=== PATIENT | female | born 1945 | race Caucasian/White ===

== ENCOUNTER 2022-09-22 15:21 | Emergency (ER) | payer MEDICARE, SELFPAY ==
[2022-09-22 15:29] VITALS: BP 155/101; PULSE 87; RESP 16; TEMP 36.9; O2SAT 92
--- NOTE | 2022-09-22 15:52 | ECG_ITS ---
[facility] Test Date: 2022-09-22 Pat Name: Myrna Sanchez Department: Room: Gender: Female Radiology Rn: : 1945 Requested By: Noé Rodriguez Order Number: [id number] Estrella MD: Rayo Waldron M.D. Measurements Intervals [place] Rate: 87 P: 65 WA: 159 QRS: 12 QRSD: 74 T: 55 QT: 360 QTc: 434 Interpretive Statements SINUS RHYTHM POSSIBLE RIGHT VENTRICULAR CONDUCTION DELAY [RSR (QR) IN V1/V2] No previous ECG available for comparison Electronically Signed On 09-23-2022 10:28:33 CDT by Rayo Waldron M.D. [email or web address]
--- NOTE | 2022-09-22 15:52 | CTR_ITS ---
PROCEDURE INFORMATION: Exam: CT Head Without Contrast Exam date and time: 09/22/2022 4:04 PM Age: 77 years old Clinical indication: Dizziness TECHNIQUE: Imaging protocol: Computed tomography of the head without contrast. Radiation optimization: All CT scans at this facility use at least one of these dose optimization techniques: automated exposure control; mA and/or kV adjustment per patient size (includes targeted exams where dose is matched to clinical indication); or iterative reconstruction. REPORTING DATA: Count of CT and Cardiac NM exams in prior 12 months: This patient has received 0 known CTs and 0 known cardiac nuclear medicine studies in the 12 months prior to the current study. COMPARISON: No relevant prior studies available. RADIATION DOSE METRICS: Total DLP (mGy-cm): 1123.78 FINDINGS: Brain: No intracranial hemorrhage. No mass effect, edema or midline shift. Cortical sulci are unremarkable for age. There are vague areas of decreased attenuation within the periventricular white matter likely secondary to chronic microvascular changes. Cerebral ventricles: No ventriculomegaly. Paranasal sinuses: Minimal mucosal thickening left maxillary sinus otherwise paranasal sinuses are unremarkable. No fluid levels. Mastoid air cells: Visualized mastoid air cells are well aerated. Bones/joints: Unremarkable. No acute fracture. Soft tissues: Unremarkable. CT/CT head wo con* [id number] IMPRESSION: No acute intracranial abnormality.
--- NOTE | 2022-09-22 16:25 | XRR_ITS ---
PROCEDURE INFORMATION: Exam: XR Chest Exam date and time: 09/22/2022 4:28 PM Age: 77 years old Clinical indication: Dyspnea; Additional info: Lightheadedness/dizziness TECHNIQUE: Imaging protocol: Radiologic exam of the chest. Views: 1 view. COMPARISON: No relevant prior studies available. FINDINGS: Lungs: And lungs: Surgical clips present along the right lateral chest wall presumed secondary to prior mastectomy. 11 cm circumscribed low attenuating masslike density projecting over right lower hemithorax presumed represent thickened or partially calcified or thickened capsule of underlying breast implant. Lung ramos otherwise aerated and clear. Pleural spaces: Unremarkable. No pleural effusion. No pneumothorax. Heart/Mediastinum: Unremarkable. No cardiomegaly. Bones/joints: Unremarkable for age. XR/XR chest 1V portable [id number] IMPRESSION: Right mastectomy with overlying right breast implant otherwise negative chest.
--- NOTE | 2022-09-22 16:26 | W.ED.DIZZY ---
Documented by User: HOMA Sanchez 09/24/22 08:21 HPI - Dizziness General: Chief Complaint: Dizziness Stated Complaint: DIZZY; HTN Time Seen by Provider: 09/22/22 15:32 History of Present Illness: HPI Narrative: Patient is a 77-year-old female comes to the ED with dizziness/lightheadedness. Symptoms have been happening now for the past week. She states that she has episodes where she gets really dizzy/lightheaded and they can last anywhere from minutes to close to an hour. She describes the dizziness as feeling more off balance and denies any room spinning sensation. Her dizziness episodes occur when she is up and ambulating. She has never had these type of episodes before. Denies any chest pain, shortness of breath, diaphoresis, nausea or vomiting. Denies any vision changes, numbness tingling or weakness to 1 side of her body or face. Patient has a history of COPD but is not on any home oxygen. Associated symptoms: Denies chest pain, chills, headache(s), nausea, nasal congestion, palpitations or vomiting Associated neuro symptoms: Deny numbness in extremities Review of Systems Const: Denies: fever(s), chills or fatigue Eyes: Denies: change in vision or eye discomfort ENMT: Denies: throat pain, odynophagia, nasal discharge or nasal congestion Card: Reports: lightheadedness; Denies: chest pain, palpitations, edema, swelling of feet/ankles, dyspnea on exertion or orthopnea Resp: Denies: dyspnea, productive cough or non-productive cough GI: Denies: abdominal pain, nausea, vomiting, diarrhea, constipation or hematochezia : Denies: flank pain, dysuria or hematuria Musc: Denies: neck pain, back pain or extremity swelling Skin/Breast: Denies: rash or new lesions Neuro: Reports: dizziness; Denies: headache(s), numbness in extremities or weakness in extremities PFSH ED PFSH: Medical History COPD (chronic obstructive pulmonary disease) Surgical History History of hip replacement Physical Exam Const: COMMON NORMALS: no acute distress, patient oriented x3 and alert HENMT: COMMON NORMALS: normocephalic HEAD & SCALP: normocephalic MOUTH: Normal oral and palatal mucosa present THROAT: posterior oropharynx normal and uvula midline Neck/C-Spine: COMMON NORMALS: supple GENERAL: Yes normal visual inspection Resp: COMMON NORMALS: normal respiratory effort, No retractions, No use of accessory muscles and clear to auscultation bilaterally AUSCULTATION: clear to auscultation bilaterally Cardio: COMMON NORMALS: regular rate, regular rhythm, S1 normal heart sound present, S2 normal heart sound present, No gallops present (Cardio), No clicks present (Cardio), No murmurs present (Cardio) and Peripheral pulses 2+ throughout RATE: regular rate RHYTHM: regular rhythm HEART SOUNDS: S1 normal heart sound present and S2 normal heart sound present PERIPHERAL PULSES: Peripheral pulses 2+ throughout GI: COMMON NORMALS: Normal to inspection, nondistended, normoactive bowel sounds present, Soft to palpation, non-tender and no masses PALPATION: Yes Soft to palpation : COMMON NORMALS: Yes no CVA tenderness BLADDER/KIDNEY EXAM: Yes no CVA tenderness Back/Pelvis: COMMON NORMALS: no CVA tenderness Extremity: COMMON NORMALS: normal to inspection Neuro: COMMON NORMALS: patient oriented x3, CN's II-XII intact bilaterally, moves all extremities, no focal motor deficits and no sensory deficits noted SENSORIUM/ORIENTATION: Yes alert COORDINATION/BALANCE: [id number] test normal SPEECH: speech normal GAIT: Yes Normal gait present MOTOR EXAM: 5/5 motor strength present throughout COORDINATION: [id number] test normal Skin: GENERAL SKIN EXAM: dry skin Course Vital Signs: Vital signs: Vital Signs Temperature 98.4 F 09/22/22 15:29 Pulse Rate 78 09/22/22 19:50 Respiratory Rate 14 09/22/22 19:50 Blood Pressure 129/90 09/22/22 19:50 Pulse Oximetry 96 09/22/22 19:50 Oxygen Delivery Me thod Room Air 09/22/22 19:50 MDM - Dizziness Lab Data I reviewed the patient's lab results. 09/22/22 16:50 09/22/22 16:[address] 09/22/22 15:52 IMPRESSION: No acute intracranial abnormality. Chest X-Ray 09/22/22 16:25 IMPRESSION: Right mastectomy with overlying right breast implant otherwise negative chest. Head/Neck CTA 09/22/22 17:02 IMPRESSION: No large vessel stenosis or occlusion. IMPRESSION: 1. Calcified plaque left carotid bifurcation with severe stenosis origin left ICA (70-99%). Recommend follow-up carotid Doppler exam for further assessment. 2. Calcified plaque right carotid bulb with mild stenosis origin right ICA (less than 50%). 3. No evidence of vertebrobasilar insufficiency. REFERENCES: NASCET CRITERIA. The degree of stenosis in the cervical segment of the internal carotid artery is based on NASCET criteria. Normal is no stenosis. Mild is less than 50% stenosis. Moderate is 50-69% stenosis. Severe is 70% to 99% stenosis. Total occlusion is no detectable patent lumen. Laboratory Results WBC 7.7 10^3/uL (4.0-10.0) 09/22/22 16:50 RBC 4.77 10^6/uL (4.1-5.3) 09/22/22 16:50 Hgb 15.2 g/dL (11.5-15.3) 09/22/22 16:50 Hct 48.0 % (37.0-47.0) H 09/22/22 16:50 MCV 100.6 fl (81-99) H 09/22/22 16:50 MCH 31.9 pg (28.0-34.0) 09/22/22 16:50 MCHC 31.7 g/dL (30.0-36.0) 09/22/22 16:50 RDW 12.4 % (12.1-15.1) 09/22/22 16:50 Plt Count 275 10^3/cmm (130-400) 09/22/22 16:50 MPV 9.3 fL (7.4-10.4) 09/22/22 16:50 Neut % (Auto) 72.4 % 09/22/22 16:50 Lymph % (Auto) 19.5 % 09/22/22 16:50 [place] % (Auto) 5.8 % 09/22/22 16:50 Eos % (Auto) 1.2 % 09/22/22 16:50 Baso % (Auto) 1.0 % 09/22/22 16:50 Neut # (Auto) 5.60 10^3/uL (1.8-7.7) 09/22/22 16:50 Lymph # (Auto) 1.5 10^3/uL (0.8-4.8) 09/22/22 16:50 [place] # (Auto) 0.5 10^3/uL (0.2-0.9) 09/22/22 16:50 Eos # (Auto) 0.1 10^3/uL (0.0-0.8) 09/22/22 16:50 Baso # (Auto) 0.1 10^3/uL (0.0-0.1) 09/22/22 16:50 Nucleated RBC % (auto) 0 % 09/22/22 16:50 Nucleated RBCs # 0.0 /100WBC 09/22/22 16:50 Sodium 136 mmol/L (136-145) 09/22/22 16:50 Potassium 4.5 mmol/L (3.5-5.1) 09/22/22 16:50 Chloride 98 mmol/L (98-107) 09/22/22 16:50 Carbon Dioxide 26 mmol/L (22-29) 09/22/22 16:50 Anion Gap 16.5 (5-19) 09/22/22 16:50 BUN 14 mg/dL (8-23) 09/22/22 16:50 Creatinine 0.8 mg/dL (0.5-0.9) 09/22/22 16:50 GFR Calculation Not Reportable 09/22/22 16:50 Glucose 106 mg/dL (65-115) 09/22/22 16:50 Calculated Osmolality 283 mOsm/kg (285-295) L 09/22/22 16:50 Calcium 9.8 mg/dL (8.5-10.5) 09/22/22 16:50 Total Bilirubin 0.3 mg/dL (0.15-1.2) 09/22/22 16:50 AST 31 U/L (0-32) 09/22/22 16:50 ALT 16 U/L (0-33) 09/22/22 16:50 Alkaline Phosphatase 145 U/L (35-105) H 09/22/22 16:50 Troponin T Baseline 16 ng/L (0-10) H 09/22/22 16:50 Troponin T 120 Minute 15.23 ng/L (0-10) H 09/22/22 18:39 Delta Troponin T -0.77 ABS# (0-10) L 09/22/22 18:39 Total Protein 7.3 g/dL (6.6-8.7) 09/22/22 16:50 Albumin 4.4 g/dL (3.5-5.2) 09/22/22 16:50 Globulin 2.9 g/dL (1.3-4.6) 09/22/22 16:50 TSH 5.65 uIU/mL (0.27-4.20) H 09/22/22 16:50 Urine Color Straw (Yellow) 09/22/22 15:44 Urine Appearance Clear (CLEAR) 09/22/22 15:44 Urine pH 5 (5-7) 09/22/22 15:44 Ur Specific [place] 1.005 (1.005-1.030) 09/22/22 15:44 Urine Protein Neg (Negative) 09/22/22 15:44 Urine Glucose (UA) Norm (Normal) 09/22/22 15:44 Urine Ketones Negative (Negative) 09/22/22 15:44 Urine Blood Neg (Negative) 09/22/22 15:44 Urine Nitrate Negative (Negative) 09/22/22 15:44 Urine Bilirubin Neg (Negative) 09/22/22 15:44 Urine Urobilinogen Norm mg/dL (Negative) 09/22/22 15:44 Ur Leukocyte Esterase Negative (Negative) 09/22/22 15:44 Discharge Plan Discharge Patient Disposition: Home Clinical Impression: Dizziness Condition: Stable Prescriptions: New meclizine 25 mg tablet 25 mg PO TID PRN (Reason: dizziness) Qty: 30 0RF Discharge Orders: Discharge ED (Routine); Ordered 09/22/22 Ordered By: Harika Vital Discharge Diet: Low Cholesterol Discharge Activity: Increase activity as tolerated Patient Instructions: Carotid Artery Disease (DC), Dizziness (ED) Activity Restrictions/Additional Instructions: Lab work today is generally stable without acute concerns of anything cardiac related. CT examination of the head showed no signs of any intracranial concerns. However, the CT angio to evaluate perfusion of blood flow through your brain does show that there is a significant area of stenosis and developing blockage of your left carotid artery which would warrant further evaluation. You have an upcoming appointment on Saturday with primary care, we do recommend discussing this with them as they can help coordinate further testing and evaluation and intervention of this finding. We have prescribed you medication to help with intermittent dizziness and would also like you to start a daily regimen of an 81 mg aspirin. Sign Out Sign Out Data: Patient Sign Out occurred on 09/22/22 at 17:11. Patient's care was discussed, and care was transferred from to HOMA Vasquez. Coding Level of Care Code ED Jewelry Sales Representative for Chg Fwd Documented by User: HOMA Vasquez 09/22/22 20:32 HPI - Dizziness General: Chief Complaint: Dizziness Stated Complaint: DIZZY; HTN Time Seen by Provider: 09/22/22 15:32 PFSH ED PFSH: Medical History COPD (chronic obstructive pulmonary disease) Surgical History History of hip replacement Course Vital Signs: Vital signs: Vital Signs Temperature 98.4 F 09/22/22 15:29 Pulse Rate 78 09/22/22 19:50 Respiratory Rate 14 09/22/22 19:50 Blood Pressure 129/90 09/22/22 19:50 Pulse Oximetry 96 09/22/22 19:50 Oxygen Delivery Me thod Room Air 09/22/22 19:50 MDM - Dizziness Medical Decision Making Harika KEYSC: Received transfer of care from Noé Rodriguez PAC at 1700. At the time of handoff, we are still waiting for some labs to come back and, after a negative head CT, was waiting for the patient to have a CT of her head and neck. Lab work was generally unremarkable. Patient had no change from baseline troponin to the 2-hour troponin. CT of the head was negative however, CTA found a 70 to 99% occlusion of the left carotid with recommendation for follow-up. I spoke with Dr. Crespo regarding the patient's evaluation and he recommended the outpatient follow-up, meclizine for dizziness, and starting a 81 mg aspirin regimen daily. I spoke with the patient and her family regarding the findings and recommendations. Incidentally, patient has an appointment on Saturday to get established with a primary care provider through [facility]. We discussed getting the patient's medical records transferred over as the primary care doctor can continue the evaluation on the CTA findings. Patient's family indicated they have Rohit aspirin at their house which the patient can start taking. Patient was given strict return precautions for any acute changes between now and her primary care evaluation. Patient family verbalized understanding and agreement to treatment plan. Differential Diagnosis Likely benign paroxysmal positional vertigo, orthostatic hypotension, vertebral basilar insufficiency, cerebrovascular accident and transient cerebral ischemia Lab Data 09/22/22 16:50 09/22/22 16:[address] 09/22/22 15:52 IMPRESSION: No acute intracranial abnormality. Chest X-Ray 09/22/22 16:25 IMPRESSION: Right mastectomy with overlying right breast implant otherwise negative chest. Head/Neck CTA 09/22/22 17:02 IMPRESSION: No large vessel stenosis or occlusion. IMPRESSION: 1. Calcified plaque left carotid bifurcation with severe stenosis origin left ICA (70-99%). Recommend follow-up carotid Doppler exam for further assessment. 2. Calcified plaque right carotid bulb with mild stenosis origin right ICA (less than 50%). 3. No evidence of vertebrobasilar insufficiency. REFERENCES: NASCET CRITERIA. The degree of stenosis in the cervical segment of the internal carotid artery is based on NASCET criteria. Normal is no stenosis. Mild is less than 50% stenosis. Moderate is 50-69% stenosis. Severe is 70% to 99% stenosis. Total occlusion is no detectable patent lumen. Laboratory Results WBC 7.7 10^3/uL (4.0-10.0) 09/22/22 16:50 RBC 4.77 10^6/uL (4.1-5.3) 09/22/22 16:50 Hgb 15.2 g/dL (11.5-15.3) 09/22/22 16:50 Hct 48.0 % (37.0-47.0) H 09/22/22 16:50 MCV 100.6 fl (81-99) H 09/22/22 16:50 MCH 31.9 pg (28.0-34.0) 09/22/22 16:50 MCHC 31.7 g/dL (30.0-36.0) 09/22/22 16:50 RDW 12.4 % (12.1-15.1) 09/22/22 16:50 Plt Count 275 10^3/cmm (130-400) 09/22/22 16:50 MPV 9.3 fL (7.4-10.4) 09/22/22 16:50 Neut % (Auto) 72.4 % 09/22/22 16:50 Lymph % (Auto) 19.5 % 09/22/22 16:50 [place] % (Auto) 5.8 % 09/22/22 16:50 Eos % (Auto) 1.2 % 09/22/22 16:50 Baso % (Auto) 1.0 % 09/22/22 16:50 Neut # (Auto) 5.60 10^3/uL (1.8-7.7) 09/22/22 16:50 Lymph # (Auto) 1.5 10^3/uL (0.8-4.8) 09/22/22 16:50 [place] # (Auto) 0.5 10^3/uL (0.2-0.9) 09/22/22 16:50 Eos # (Auto) 0.1 10^3/uL (0.0-0.8) 09/22/22 16:50 Baso # (Auto) 0.1 10^3/uL (0.0-0.1) 09/22/22 16:50 Nucleated RBC % (auto) 0 % 09/22/22 16:50 Nucleated RBCs # 0.0 /100WBC 09/22/22 16:50 Sodium 136 mmol/L (136-145) 09/22/22 16:50 Potassium 4.5 mmol/L (3.5-5.1) 09/22/22 16:50 Chloride 98 mmol/L (98-107) 09/22/22 16:50 Carbon Dioxide 26 mmol/L (22-29) 09/22/22 16:50 Anion Gap 16.5 (5-19) 09/22/22 16:50 BUN 14 mg/dL (8-23) 09/22/22 16:50 Creatinine 0.8 mg/dL (0.5-0.9) 09/22/22 16:50 GFR Calculation Not Reportable 09/22/22 16:50 Glucose 106 mg/dL (65-115) 09/22/22 16:50 Calculated Osmolality 283 mOsm/kg (285-295) L 09/22/22 16:50 Calcium 9.8 mg/dL (8.5-10.5) 09/22/22 16:50 Total Bilirubin 0.3 mg/dL (0.15-1.2) 09/22/22 16:50 AST 31 U/L (0-32) 09/22/22 16:50 ALT 16 U/L (0-33) 09/22/22 16:50 Alkaline Phosphatase 145 U/L (35-105) H 09/22/22 16:50 Troponin T Baseline 16 ng/L (0-10) H 09/22/22 16:50 Troponin T 120 Minute 15.23 ng/L (0-10) H 09/22/22 18:39 Delta Troponin T -0.77 ABS# (0-10) L 09/22/22 18:39 Total Protein 7.3 g/dL (6.6-8.7) 09/22/22 16:50 Albumin 4.4 g/dL (3.5-5.2) 09/22/22 16:50 Globulin 2.9 g/dL (1.3-4.6) 09/22/22 16:50 TSH 5.65 uIU/mL (0.27-4.20) H 09/22/22 16:50 Urine Color Straw (Yellow) 09/22/22 15:44 Urine Appearance Clear (CLEAR) 09/22/22 15:44 Urine pH 5 (5-7) 09/22/22 15:44 Ur Specific [place] 1.005 (1.005-1.030) 09/22/22 15:44 Urine Protein Neg (Negative) 09/22/22 15:44 Urine Glucose (UA) Norm (Normal) 09/22/22 15:44 Urine Ketones Negative (Negative) 09/22/22 15:44 Urine Blood Neg (Negative) 09/22/22 15:44 Urine Nitrate Negative (Negative) 09/22/22 15:44 Urine Bilirubin Neg (Negative) 09/22/22 15:44 Urine Urobilinogen Norm mg/dL (Negative) 09/22/22 15:44 Ur Leukocyte Esterase Negative (Negative) 09/22/22 15:44 Discharge Plan Discharge Patient Disposition: Home Clinical Impression: Dizziness Condition: Stable Prescriptions: New meclizine 25 mg tablet 25 mg PO TID PRN (Reason: dizziness) Qty: 30 0RF Discharge Orders: Discharge ED (Routine); Ordered 09/22/22 Ordered By: Harika Vital Discharge Diet: Low Cholesterol Discharge Activity: Increase activity as tolerated Patient Instructions: Carotid Artery Disease (DC), Dizziness (ED) Activity Restrictions/Additional Instructions: Lab work today is generally stable without acute concerns of anything cardiac related. CT examination of the head showed no signs of any intracranial concerns. However, the CT angio to evaluate perfusion of blood flow through your brain does show that there is a significant area of stenosis and developing blockage of your left carotid artery which would warrant further evaluation. You have an upcoming appointment on Saturday with primary care, we do recommend discussing this with them as they can help coordinate further testing and evaluation and intervention of this finding. We have prescribed you medication to help with intermittent dizziness and would also like you to start a daily regimen of an 81 mg aspirin. Sign Out Sign Out Data: Patient Sign Out occurred on 09/22/22 at 17:11. Patient's care was discussed, and care was transferred from to HOMA Vasquez. Coding Level of Care Code ED Jewelry Sales Representative for Christiano Thompson
[2022-09-22 16:31] LABS: Add Urine Microscopic? NO; Charge for UA Resulting for Rev
[2022-09-22 16:48] LABS: Bilirubin Urine Neg (Negative); Blood Urine Neg (Negative); Glucose Urine UA Norm (Normal); Ketones Urine Negative (Negative); Leukocyte Esterase Urine Negative (Negative); Nitrate Urine Negative (Negative); Protein Urine Neg (Negative); Specific Gravity, Urine 1.005 (1.005-1.030); Urine Appearance Clear (CLEAR); Urine Color Straw (Yellow); Urobilinogen Urine Norm (Negative); pH Urine 5 (5-7)
--- NOTE | 2022-09-22 17:02 | CTR_ITS ---
PROCEDURE INFORMATION: Exam: CTA Head With Contrast, Arteriography Exam date and time: 09/22/2022 6:16 PM Age: 77 years old Clinical indication: Other: Dizzy spells/lightheaded; Additional info: Dizziness TECHNIQUE: Imaging protocol: Computed tomographic angiography of the head with contrast. Exam focused on the arteries. 3D rendering (Not supervised by radiologist): MIP and/or 3D reconstructed images were created by the technologist. Radiation optimization: All CT scans at this facility use at least one of these dose optimization techniques: automated exposure control; mA and/or kV adjustment per patient size (includes targeted exams where dose is matched to clinical indication); or iterative reconstruction. Contrast material: OMNI 350; Contrast volume: 100 ml; Contrast route: INTRAVENOUS (IV); REPORTING DATA: Count of CT and Cardiac NM exams in prior 12 months: This patient has received 0 known CTs and 0 known cardiac nuclear medicine studies in the 12 months prior to the current study. COMPARISON: CT head wo con* [id number] 09/22/2022 4:04 PM RADIATION DOSE METRICS: Total DLP (mGy-cm): 353.42 FINDINGS: ANTERIOR CIRCULATION: Right internal carotid artery: Intracranial segment is patent with no significant stenosis. No aneurysm. Right middle cerebral artery: No occlusion or significant stenosis. No aneurysm. Right anterior cerebral artery: No occlusion or significant stenosis. No aneurysm. Left internal carotid artery: Intracranial segment is patent with no significant stenosis. No aneurysm. Left middle cerebral artery: No occlusion or significant stenosis. No aneurysm. Left anterior cerebral artery: No occlusion or significant stenosis. No aneurysm. POSTERIOR CIRCULATION: Right vertebral artery: No occlusion or significant stenosis. No aneurysm. Left vertebral artery: No occlusion or significant stenosis. No aneurysm. Basilar artery: No occlusion or significant stenosis. No aneurysm. Right posterior cerebral artery: origin arising the right ICA. No occlusion or significant stenosis. No aneurysm. Left posterior cerebral artery: origin arising from the left ICA. No occlusion or significant stenosis. No aneurysm. Brain: No definite mass, mass effect, or midline shift. Cerebral ventricles: No ventriculomegaly. Bones/joints: Unremarkable. No acute fracture. Soft tissues: Unremarkable. PROCEDURE INFORMATION: Exam: CTA Neck With Contrast Exam date and time: 09/22/2022 6:16 PM Age: 77 years old Clinical indication: Other: Dizzy spells/lightheaded; Additional info: Dizziness TECHNIQUE: Imaging protocol: Computed tomographic angiography of the neck with contrast. 3D rendering (Not supervised by radiologist): MIP and/or 3D reconstructed images were created by the technologist. Radiation optimization: All CT scans at this facility use at least one of these dose optimization techniques: automated exposure control; mA and/or kV adjustment per patient size (includes targeted exams where dose is matched to clinical indication); or iterative reconstruction. Contrast material: OMNI 350; Contrast volume: 100 ml; Contrast route: INTRAVENOUS (IV); REPORTING DATA: Count of CT and Cardiac NM exams in prior 12 months: This patient has received 0 known CTs and 0 known cardiac nuclear medicine studies in the 12 months prior to the current study. COMPARISON: CT head wo con* [id number] 09/22/2022 4:04 PM RADIATION DOSE METRICS: Total DLP (mGy-cm): 353.42 FINDINGS: Right common carotid artery: No stenosis. No dissection or occlusion. Right internal carotid artery: Mild calcified plaque origin right ICA resulting in mild stenosis (less than 50%). Remainder of the right ICA is patent to the skull base. Right external carotid artery: No occlusion or stenosis of the origin. Left common carotid artery: No stenosis. No dissection or occlusion. Left internal carotid artery: Calcified plaque origin left ICA with severe stenosis (greater than 70%). Remainder of the left ICA is patent to the skull base. Left external carotid artery: No occlusion or stenosis of the origin. Right vertebral artery: No stenosis. No dissection or occlusion. Left vertebral artery: No stenosis. No dissection or occlusion. Soft tissues: Normal. No significant soft tissue swelling. Bones/joints: Moderate degenerative changes mid-lower cervical spine. No acute bony abnormalities. CT/CT angio headneck* [id number] IMPRESSION: No large vessel stenosis or occlusion. IMPRESSION: 1. Calcified plaque left carotid bifurcation with severe stenosis origin left ICA (70-99%). Recommend follow-up carotid Doppler exam for further assessment. 2. Calcified plaque right carotid bulb with mild stenosis origin right ICA (less than 50%). 3. No evidence of vertebrobasilar insufficiency. REFERENCES: NASCET CRITERIA. The degree of stenosis in the cervical segment of the internal carotid artery is based on NASCET criteria. Normal is no stenosis. Mild is less than 50% stenosis. Moderate is 50-69% stenosis. Severe is 70% to 99% stenosis. Total occlusion is no detectable patent lumen.
[2022-09-22 17:05] LABS: Basophils # 0.1 10^3/uL (0.0-0.1); Eosinophils # 0.1 10^3/uL (0.0-0.8); Eosinophils % 1.2 %; Hemoglobin 15.2 g/dL (11.5-15.3); Lymphocytes # 1.5 10^3/uL (0.8-4.8); Lymphocytes % 19.5 %; Mean Corpuscular HGB Conc 31.7 g/dL (30.0-36.0); Mean Corpuscular Hemoglobin 31.9 pg (28.0-34.0); Mean Corpuscular Volume 100.6 fl (81-99); Mean Platelet Volume 9.3 fL (7.4-10.4); Monocytes # 0.5 10^3/uL (0.2-0.9); Monocytes % 5.8 %; Neutrophils % 72.4 %; Nucleated Red Blood Cells % 0 %; Platelet Count 275 10^3/cmm (130-400); Red Blood Count 4.77 10^6/uL (4.1-5.3); Red Cell Distribution Width 12.4 % (12.1-15.1); White Blood Count 7.7 10^3/uL (4.0-10.0)
[2022-09-22 17:27] LABS: Alanine Aminotransferase 16 U/L (0-33); Albumin Level 4.4 g/dL (3.5-5.2); Alkaline Phosphatase 145 U/L (35-105); Anion Gap 16.5 (5-19); Aspartate Amino Transferase 31 U/L (0-32); Blood Urea Nitrogen 14 mg/dL (8-23); Calcium 9.8 mg/dL (8.5-10.5); Carbon Dioxide 26 mmol/L (22-29); Chloride 98 mmol/L (98-107); Globulin 2.9 g/dL (1.3-4.6); Glucose 106 mg/dL (65-115); Osmolality Calculated 283 mOsm/kg (285-295); Potassium 4.5 mmol/L (3.5-5.1); Sodium 136 mmol/L (136-145); Total Bilirubin 0.3 mg/dL (0.15-1.2); Total Protein 7.3 g/dL (6.6-8.7); Troponin(5th) Baseline 16 ng/L (0-10)
[2022-09-22] MEDS: iohexol 350 mg/mL 500 mL Btl (per mL) IV (18:19)
[2022-09-22 18:20] LABS: Thyroid Stimulating Hormone 5.65 uIU/mL (0.27-4.20)
[2022-09-22 18:24] VITALS: BP 127/73; PULSE 86; RESP 14; O2SAT 98
--- NOTE | 2022-09-22 18:25 | ECG_ITS ---
[facility] Test Date: 2022-09-22 Pat Name: Myrna Sanchez Department: Room: Gender: Female [employer]: : [id number] Requested By: Noé Rodriguez Order Number: [id number] Estrella MD: Rayo Waldron M.D. Measurements Intervals [place] Rate: 85 P: 85 [place]: 179 QRS: 16 QRSD: 86 T: 60 QT: 384 QTc: 459 Interpretive Statements SINUS RHYTHM POSSIBLE RIGHT VENTRICULAR CONDUCTION DELAY [RSR (QR) IN V1/V2] Compared to ECG 09/22/2022 16:00:53 No significant changes Electronically Signed On 09-23-2022 10:29:12 CDT by Rayo Waldron M.D. [email or web address]
[2022-09-22 19:08] LABS: Troponin 5 2HR 15.23 ng/L (0-10)
[2022-09-22 19:09] LABS: Troponin 5 2HR Delta -0.77 ABS# (0-10)
[2022-09-22 19:50] VITALS: BP 129/90; PULSE 78; RESP 14; O2SAT 96
--- NOTE | 2022-09-22 19:50 | PC.NURSE ---
stroke alert flow sheet completed by charge nurse. not documented
--- NOTE | 2022-10-04 10:26 | DCPLANNER ---
[facility] called patient due to no primary care physician - patient stated that he sees Dr. Mendoza at [facility] [place].
== END 2022-09-22 19:49 | disposition home or self-care (01) ==
PROVIDERS: Physician Assistant; Emergency Provider Physician Assistant; PCP Family Medicine
DX: R42 Dizziness and giddiness (principal); J44.9 Chronic obstructive pulmonary disease, unspecified
CPT/HCPCS: 36415; 70450; 70496; 70498; 71045; 80053; 81003; 84443; 84484; 85025; 93005; 99285; Q9967